=== PATIENT | female | born 1985 | race Caucasian/White ===

== ENCOUNTER 2020-03-15 03:16 | Outpatient (CLI) | payer OTHER, SELFPAY ==
[2020-03-15 13:45] LABS: Anion Gap 6.5 mmol/L (3-11); BUN 18 mg/dL (7-18); CO2 29.5 mmol/L (21.0-32.0); CREATININE 0.74 mg/dL (0.55-1.02); Calcium 8.8 mg/dL (8.5-10.1); Chloride 103 mmol/L (98-107); FREE T4 1.03 ng/dL (0.76-1.46); Glucose 87 mg/dL (74-106); Potassium 3.9 mmol/L (3.5-5.1); Sodium 139 mmol/L (136-145); TSH 0.99 uIU/mL (0.36-3.74)
[2020-03-15 13:57] LABS: Calculated LDL 92 mg/dL (<100); Cholesterol 179 mg/dL (<200); HDL Cholesterol 76 mg/dL (40-60); Triglyceride 58 mg/dL (<150)
== END 2020-03-15 03:36 ==
PROVIDERS: PCP Nurse Practitioner Family; Visit Provider Nurse Practitioner Family
DX: E03.9 Hypothyroidism, unspecified (principal)
CPT/HCPCS: 36415; 80048; 80061; 83036; 84439; 84443

== ENCOUNTER 2021-07-11 09:00 | Outpatient (CLI) | payer OTHER, SELFPAY ==
[2021-07-11 12:12] LABS: Abs Immature Grans 0.03 10^3/uL (0.0-0.06); Absolute Basophil Count 0.04 10^3/uL (0.0-0.2); Absolute Eosinophil Count 0.18 10^3/uL (0.0-0.7); Absolute Lymphocyte Count 2.12 10^3/uL (1.2-3.4); Absolute Monocyte Count 0.86 10^3/uL (0.1-0.8); Absolute Neutrophil Count 5.82 10^3/uL (1.2-6.7); Basophils % 0.4; HCT 38.3 % (36.0-46.0); HGB 13.1 g/dL (11.2-15.7); Immature Grans % 0.3; Lymphocytes % 23.4; MCH 31.6 pg (27.0-33.0); MCHC 34.2 % (32.0-36.0); MCV 92.3 fL (80-95); MPV 11.8 fL (8.0-11.0); Monocytes % 9.5; Neutrophils % 64.4; Nucleated RBC 0 %; Platelet Count 300 10^3/uL (130-400); RBC 4.15 10^6/uL (3.93-5.22); RDW-SD 43.6 fL; WBC 9.05 10^3/uL (4.4-10.8)
[2021-07-11 13:29] LABS: Anion Gap 12.2 mmol/L (3-11); BUN 10 mg/dL (7-18); CO2 27.8 mmol/L (21.0-32.0); CREATININE 0.8 mg/dL (0.55-1.02); Calcium 9.1 mg/dL (8.5-10.1); Chloride 102 mmol/L (98-107); FREE T4 1.13 ng/dL (0.76-1.46); Glucose 82 mg/dL (74-106); Potassium 4.3 mmol/L (3.5-5.1); Sodium 142 mmol/L (136-145); TSH 3.38 uIU/mL (0.36-3.74)
[2021-07-13 00:56] LABS: Vitamin D 25 Total 24.9 ng/mL (30-100)
== END 2021-07-11 09:01 | disposition home or self-care (01) ==
LOC: LBO 09:00
PROVIDERS: PCP Nurse Practitioner Family; Visit Provider Nurse Practitioner Family
DX: E03.9 Hypothyroidism, unspecified (principal)
CPT/HCPCS: 36415; 80048; 82306; 84439; 84443; 85025

== ENCOUNTER 2021-10-03 02:11 | Outpatient (CLI) | payer OTHER, SELFPAY ==
[2021-10-03 13:27] LABS: FREE T4 1.17 ng/dL (0.76-1.46); TSH 0.44 uIU/mL (0.36-3.74)
[2021-10-05 00:13] LABS: Vitamin D 25 Total 30.3 ng/mL (30-100)
== END 2021-10-03 02:12 | disposition home or self-care (01) ==
LOC: LBO 02:11
PROVIDERS: PCP Nurse Practitioner Family; Visit Provider Nurse Practitioner Family
DX: E03.9 Hypothyroidism, unspecified (principal); E55.9 Vitamin D deficiency, unspecified
CPT/HCPCS: 36415; 82306; 84439; 84443

== ENCOUNTER 2022-06-19 18:00 | Observation (INO) | payer OTHER, SELFPAY ==
[2022-06-19] VITALS (49 sets, daily range): BP systolic 126–132; BP diastolic 75–91; PULSE 69–76; RESP 15–20; TEMP 36.7; O2SAT 96–100
--- NOTE | 2022-06-19 | DI.CT_ITS ---
Exam(s) CT CHEST PE CTA EXAM: CT CHEST PE CTA CLINICAL HISTORY: right sided CP. TECHNIQUE: Imaging Protocol: Axial CT angiography was performed with multi-slice acquisition and mu lti-planar and/or 3D reconstructions. CONTRAST MATERIAL: Intravenous: Omnipaque 350 Contrast volume:structured data in ml COMPARISON: No exams were available for comparison FINDINGS: CT angiography of the chest was performed with intravenous infusion of 100 cc of Omnipaque 350. There are healing fractures with significant callus of the right 3rd through 6th ribs anteriorly. No acute fracture seen. The lungs are clear. No pleural effusion. Tracheobronchial tree appears intact. No evidence of pulmonary embolic disease. Thoracic aorta is of normal diameter, no thoracic aortic an eurysm or dissection, major branch vessels appear intact. No mediastinal or hilar adenopathy. Images obtained through the upper abdomen show unremarkable appearance of the visualized portions of the liver, spleen, pancreas, adrenals, and kidneys. IMPRESSION: Negative CT angiogram of the chest. No evidence of pulmonary embolic disease. Note is made of healing rib fractures of ribs 3 through 6 on the right, no acute fracture seen. RADIATION DOSE DELIVERED: 306.03mGy.cm Total DLP 306.03mGy.cm Total DLP !Error CTDIvol DATA REPOSITORY: All CT scans at this facility are submitted to the National Radiology Data Registry (NRDR) Dose Index Registry (DIR) with the [employer] (A[employer]). RADIATION OPTIMIZATION: All CT scans at this facility use at least one of these dose optimization te chniques: automated exposure control; mA and/or kV adjustment per patient size (includes targeted exa ms where dose is matched to clinical indication); or iterative reconstruction.
--- NOTE | 2022-06-19 18:15 | RT.EKG_ITS ---
APPROVED REPORT Exam: Resting ECG Reason for Exam: sob Patient Location: E HR:66 bpm ECG Measurements Heart Rate 66 AXIS OR 165 P 52 QRSd 97 QRS 52 QT 404 T 30 QTc 425 Conclusion Sinus rhythm...normal P axis, V-rate 60- 99. Sinus. Normal axis. No STEMI. I have reviewed and interpreted ECG and agree with software generated interpretation.
[2022-06-19 22:05] LABS: Abs Immature Grans 0.03 10^3/uL (0.0-0.06); Absolute Basophil Count 0.05 10^3/uL (0.0-0.2); Absolute Eosinophil Count 0.41 10^3/uL (0.0-0.7); Absolute Monocyte Count 0.68 10^3/uL (0.1-0.8); Absolute Neutrophil Count 3.76 10^3/uL (1.2-6.7); Basophils % 0.7; Eosinophils % 5.5; HCT 42.4 % (36.0-46.0); HGB 14.3 g/dL (11.2-15.7); Immature Grans % 0.4; Lymphocytes % 33.6; MCH 30.9 pg (27.0-33.0); MCHC 33.7 % (32.0-36.0); MCV 92 fL (80-95); MPV 11.3 fL (8.0-11.0); Monocytes % 9.2; Neutrophils % 50.6; Platelet Count 345 10^3/uL (130-400); RBC 4.63 10^6/uL (3.93-5.22); RDW-SD 40.3 fL; WBC 7.43 10^3/uL (4.4-10.8)
[2022-06-19 22:19] LABS: Troponin I 311 ng/L (<or=60)
[2022-06-19] MEDS: Omnipaque 350 MG/ML 100 ML BTL IJ (22:20)
[2022-06-19 22:21] LABS: TSH (W/Ref FT4) 1.94 uIU/mL (0.36-3.74)
[2022-06-19 22:32] LABS: D-Dimer 369 ng/mlFEU (<500)
[2022-06-19 22:37] LABS: Calcium 9.3 mg/dL (8.5-10.1)
[2022-06-19 22:38] LABS: ALT 36 U/L (14-59); AST 24 U/L (15-37); Albumin 4.2 g/dL (3.4-5.0); Alkaline Phosphatase 103 U/L (46-116); Anion Gap 6.5 mmol/L (3-11); BUN 16 mg/dL (7-18); Bilirubin, Total 0.2 mg/dL (0.2-1.0); CO2 30.5 mmol/L (21.0-32.0); CREATININE 0.8 mg/dL (0.55-1.02); Chloride 101 mmol/L (98-107); Estimated GFR 98.48 (mL/min/1.73m2); Glucose 90 mg/dL (74-106); Potassium 3.6 mmol/L (3.5-5.1); Sodium 138 mmol/L (136-145); Total Protein 8.4 g/dL (6.4-8.2)
[2022-06-19 22:39] LABS: Troponin I 348 ng/L (<or=60)
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
[2022-06-19 23:47] LABS: ESR 7 mm/hr (0-20)
[2022-06-19 23:50] LABS: Source Nasal/Nares
[2022-06-19] MEDS: Ketorolac 15 MG/ML VIAL IVP (23:56)
[2022-06-19] MEDS: Colchicine 0.6 MG TAB PO (23:56)
[2022-06-19 23:59] LABS: C-Reactive Protein 0.29 mg/dL (0.0-0.3)
[2022-06-20] VITALS (7 sets, daily range): BP systolic 111–123; BP diastolic 71–78; PULSE 58–70; RESP 16–18; TEMP 36.2–36.9; O2SAT 95–99
[2022-06-20 00:23] LABS: COVID-19 PCR Negative (Negative)
[2022-06-20] MEDS: Levothyroxine 112 MCG TAB PO (06:23)
[2022-06-20 06:33] LABS: Abs Immature Grans 0.02 10^3/uL (0.0-0.06); Absolute Basophil Count 0.05 10^3/uL (0.0-0.2); Absolute Eosinophil Count 0.35 10^3/uL (0.0-0.7); Absolute Monocyte Count 0.75 10^3/uL (0.1-0.8); Absolute Neutrophil Count 3.29 10^3/uL (1.2-6.7); Basophils % 0.8; Eosinophils % 5.3; HCT 36.4 % (36.0-46.0); HGB 12.8 g/dL (11.2-15.7); Immature Grans % 0.3; MCH 31.7 pg (27.0-33.0); MCHC 35.2 % (32.0-36.0); MCV 90 fL (80-95); MPV 11.7 fL (8.0-11.0); Monocytes % 11.4; Neutrophils % 50.2; Platelet Count 290 10^3/uL (130-400); RBC 4.04 10^6/uL (3.93-5.22); RDW 12.1 % (11.7-14.6); RDW-SD 39.7 fL; WBC 6.56 10^3/uL (4.4-10.8)
[2022-06-20 06:51] LABS: ALT 29 U/L (14-59); AST 24 U/L (15-37); Albumin 3.5 g/dL (3.4-5.0); Alkaline Phosphatase 86 U/L (46-116); Anion Gap 7.1 mmol/L (3-11); BUN 15 mg/dL (7-18); Bilirubin, Total 0.5 mg/dL (0.2-1.0); CO2 25.9 mmol/L (21.0-32.0); CREATININE 0.7 mg/dL (0.55-1.02); Calcium 8.6 mg/dL (8.5-10.1); Chloride 103 mmol/L (98-107); Estimated GFR 115.59 (mL/min/1.73m2); Glucose 93 mg/dL (74-106); Magnesium 1.9 mg/dL (1.8-2.4); Potassium 3.3 mmol/L (3.5-5.1); Sodium 136 mmol/L (136-145); Total Protein 6.8 g/dL (6.4-8.2)
[2022-06-20 07:01] LABS: Troponin I 275 ng/L (<or=60)
--- NOTE | 2022-06-20 07:15 | RT.EKG_ITS ---
APPROVED REPORT Exam: Resting ECG Reason for Exam: chest pain, elevated troponin Patient Location: I HR:61 bpm ECG Measurements Heart Rate 61 AXIS SC 165 P 21 QRSd 101 QRS 0 QT 444 T 20 QTc 448 Conclusion Sinus rhythm...normal P axis, V-rate 50- 99 Normal Electrocardiogram
[2022-06-20 07:56] LABS: NT-proBNP 30 pg/mL (<300)
[2022-06-20] MEDS: Colchicine 0.6 MG TAB PO (08:09)
[2022-06-20] MEDS: Potassium Chloride 10 MEQ CAPCR 40 MEQ PO (08:10)
[2022-06-20] MEDS: Ibuprofen 800 MG TAB PO ×2 (08:10→14:13)
[2022-06-20 10:34] LABS: Troponin I 283 ng/L (<or=60)
--- NOTE | 2022-06-20 13:06 | PDOC.CMIN ---
- If Service Date Differs Date of service: 06/20/22 Time of Service: 13:06 Care Management Initial Assess REASON FOR HOSPITALIZATION:: Costochrondral chest pain, elevated troponin PAST MEDICAL HISTORY/PAST SURGICAL HISTORY:: Medical History . Hyperthyroidism. S/p left throidectomy in 2003, now hypothyroid. Surgical History . S/P partial thyroidectomy (~2003). Left lob PREVIOUS FUNCTIONAL STATUS/SOCIAL/FAMILY SUPPORTS:: Independent at baseline in the community. Active, fully employed at [employer]. CURRENT FUNCTIONAL STATUS:: Independent, pleasant, awaiting ECHO and discharge plan of care. ADVANCE DIRECTIVES:: None on file. Has patient been provided with info about the portal/API?: Yes Did the patient sign up for the portal?: Yes CODE STATUS:: Full Code INSURANCE COVERAGE / FINANCIAL ISSUES:: [employer] PRIMARY CARE PHYSICIAN:: Yesenia Feldman POTENTIAL DISCHARGE NEEDS:: ECHO, Follow up appointments. PATIENT/FAMILY EDUCATION NEEDS:: Review discharge instructions, discuss Ask Me Three. ANTICIPATED BARRIERS TO DISCHARGE:: None identified. TRANSPORTATION:: Via private vehicle with family. PLAN:: Irais will return home when ready per MD. She will follow up with her PCP and plan of care as prescribed, she will transport via private vehicle with family.
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
== END 2022-06-20 14:49 | disposition home or self-care (01) ==
LOC: ER 06-20 00:25 → MS 06-20 00:45
PROVIDERS: Internal Medicine; Physician Assistant; Admitting Provider Family Medicine; Emergency Provider Physician Assistant; PCP Nurse Practitioner Family; Visit Provider Family Medicine
DX: R07.89 Other chest pain (principal); R74.8 Abnormal levels of other serum enzymes; Z23 Encounter for immunization; S22.41XD Multiple fractures of ribs, right side, subsequent encounter for fracture with routine healing; R91.8 Other nonspecific abnormal finding of lung field; Z20.822 Contact with and (suspected) exposure to COVID-19; Y93.55 Activity, bike riding; X58.XXXA Exposure to other specified factors, initial encounter; E89.0 Postprocedural hypothyroidism; E55.9 Vitamin D deficiency, unspecified; Z86.16 Personal history of COVID-19; R06.02 Shortness of breath
CPT/HCPCS: 36415; 71275; 80048; 80053; 81025; 85652; 87635; 90471; 90686; 93005; 96374; 99285; 83735; 83880; 84443; 84484; 85025; 85379; 86140; 93010; 93306; 99220; 99238; G0378; J1885; J3490

== ENCOUNTER 2022-07-12 03:32 | Outpatient (CLI) | payer OTHER, SELFPAY ==
[2022-07-12 15:32] LABS: Troponin I 74 ng/L (<or=60)
== END 2022-07-12 03:33 | disposition home or self-care (01) ==
LOC: LBO 03:32
PROVIDERS: PCP Nurse Practitioner Family; Visit Provider Nurse Practitioner Family
DX: R77.8 Other specified abnormalities of plasma proteins (principal)
CPT/HCPCS: 36415; 84484

== ENCOUNTER 2022-10-26 10:52 | Outpatient (RCR) | payer OTHER, SELFPAY ==
--- NOTE | 2022-10-26 10:45 | HOLTER_ITS ---
APPROVED REPORT Conclusion This is a 48-hour Holter monitor ordered for palpitations Rhythm throughout was sinus with an average heart rate of 83. Minimum was 57, maximum 154 A total of 7 isolated premature ventricular contractions were seen. There were 3 isolated atrial premature beats No patient symptoms were reported
== END 2022-11-23 23:59 | disposition home or self-care (01) ==
LOC: CARDOPNVT 10:52
PROVIDERS: PCP Nurse Practitioner Family; Visit Provider Nurse Practitioner Family
DX: R00.2 Palpitations (principal); I49.1 Atrial premature depolarization
CPT/HCPCS: 93225; 93226

== ENCOUNTER 2023-01-01 18:32 | Outpatient (REF) | payer OTHER, SELFPAY ==
[2023-01-02 22:06] LABS: Coccidioides Ab Scr w/Reflex Negative (Negative)
== END 2023-01-01 18:33 | disposition home or self-care (01) ==
LOC: LBN 18:32
PROVIDERS: PCP Nurse Practitioner Family; Visit Provider Student in an Organized Health Care Education/Training Program
DX: R07.1 Chest pain on breathing (principal)
CPT/HCPCS: 86635; 87798

== ENCOUNTER 2023-05-21 16:05 | Outpatient (CLI) | payer OTHER, SELFPAY ==
[2023-05-21 09:45] LABS: Alkaline Phosphatase 65 U/L (46-116); BUN 15 mg/dL (7-18); Bilirubin, Total 0.4 mg/dL (0.2-1.0); CO2 29.3 mmol/L (21.0-32.0); CREATININE 0.8 mg/dL (0.55-1.02); Calcium 9.4 mg/dL (8.5-10.1); Chloride 101 mmol/L (98-107); Estimated GFR 97.87 (mL/min/1.73m2); Glucose 89 mg/dL (74-106); Potassium 4.1 mmol/L (3.5-5.1); Sodium 138 mmol/L (136-145); Total Protein 7.6 g/dL (6.4-8.2)
[2023-05-21 09:46] LABS: ALT 31 U/L (14-59); AST 16 U/L (15-37); Anion Gap 7.7 mmol/L (3-11); TSH (W/Ref FT4) 1.18 uIU/mL (0.36-3.74)
[2023-05-21 09:57] LABS: Vitamin D 25 Total 31.9 ng/mL (30-100)
== END 2023-05-21 16:06 | disposition home or self-care (01) ==
LOC: LBO 16:05
PROVIDERS: PCP Nurse Practitioner Family; Visit Provider Nurse Practitioner Family
DX: Z00.00 Encounter for general adult medical examination without abnormal findings (principal)
CPT/HCPCS: 36415; 80053; 82306; 84443

== ENCOUNTER → 2023-10-10 10:16 | Outpatient (CLI) | payer OTHER, SELFPAY ==
--- NOTE | 2023-10-10 09:43 | DI.RAD_ITS ---
Exam(s) XR KNEE RT 3V AP,LAT,SERINA EXAM: XR KNEE RT 3V AP,LAT,SERINA CLINICAL HISTORY: knee pain, blunt force to anterior knee, M25.569. TECHNIQUE: 2D digital imaging was performed. Three views. COMPARISON: No exams were available for comparison FINDINGS: BONES: No acute fracture is present. No bony destructive lesion is seen. JOINTS: The knee is normally aligned. No joint effusion is seen. SOFT TISSUE: Anterior soft tissue swelling. IMPRESSION: Anterior soft tissue swelling. DATA REPOSITORY: RADIATION DOSE DELIVERED:
== END ==
PROVIDERS: PCP Nurse Practitioner Family; Visit Provider Student in an Organized Health Care Education/Training Program
DX: M25.561 Pain in right knee (principal)
CPT/HCPCS: 73562

== ENCOUNTER 2024-07-09 21:44 | Outpatient (REF) | payer OTHER, SELFPAY ==
[2024-07-09 17:12] LABS: Anion Gap 10.3 mmol/L (3-11); BUN 13 mg/dL (7-18); CO2 28.7 mmol/L (21.0-32.0); Calcium 9.4 mg/dL (8.5-10.1); Chloride 102 mmol/L (98-107); Estimated GFR 74.41 (mL/min/1.73m2); Glucose 86 mg/dL (74-106); Potassium 3.9 mmol/L (3.5-5.1); Sodium 141 mmol/L (136-145); Vitamin D 25 Total 23.2 ng/mL (30-100)
== END 2024-07-09 21:45 | disposition home or self-care (01) ==
LOC: LBN 21:44
PROVIDERS: PCP Nurse Practitioner Family; Visit Provider Nurse Practitioner Family
DX: Z00.00 Encounter for general adult medical examination without abnormal findings (principal); E03.9 Hypothyroidism, unspecified; E55.9 Vitamin D deficiency, unspecified
CPT/HCPCS: 80048; 82306; 84443

== ENCOUNTER 2024-09-16 16:01 | Outpatient (CLI) | payer OTHER, SELFPAY ==
--- NOTE | 2024-09-16 09:56 | DI.RAD_ITS ---
Exam(s) XR KNEE RT 3V AP,LAT,SERINA EXAM: XR KNEE RT 3V AP,LAT,SERINA CLINICAL HISTORY: RIGHT KNEE PAIN. TECHNIQUE: 2D digital imaging was performed. Three views. COMPARISON: CR XR KNEE RT 3V AP,LAT,SERINA from 10/10/2023 FINDINGS: BONES: No acute fracture is present. No bony destructive lesion is seen. JOINTS: The knee is normally aligned. A small joint effusion is seen. The joint spaces are maintain ed. SOFT TISSUE: Normal. IMPRESSION: Small joint effusion. DATA REPOSITORY: RADIATION DOSE DELIVERED:
== END 2024-09-16 16:02 | disposition home or self-care (01) ==
LOC: DIORS 16:01
PROVIDERS: PCP Nurse Practitioner Family; Visit Provider Student in an Organized Health Care Education/Training Program
DX: M25.561 Pain in right knee (principal)
CPT/HCPCS: 73562

== ENCOUNTER 2024-09-24 02:56 | Outpatient (CLI) | payer OTHER, SELFPAY ==
--- NOTE | 2024-09-24 07:15 | DI.MRI_ITS ---
Exam(s) MR LOWER JOINT RT WO EXAM: MR LOWER JOINT RT WO CLINICAL HISTORY: R KNEE INJURY,RT ACL TEAR,KNEE PAIN,S83.511A,M25.569. TECHNIQUE: Multiplanar multisequence MRI was performed. COMPARISON: CR XR KNEE RT 3V AP,LAT,SERINA from 09/16/2024 FINDINGS: BONES: There is marrow edema involving the lateral tibial plateau. There is also some deformity invo lving the very lateral aspect of the anterior tibial plateau which may represent a for nondisplaced f racture. There is also marrow edema seen in the medial tibial plateau posteriorly and the medial asp ect of the medial femoral condyle. JOINTS: Articular cartilage is unremarkable. There is a moderate joint effusion. TENDONS: Extensor mechanism: Unremarkable. Medial retinaculum: Unremarkable. Lateral retinaculum: Unremarkable. Popliteus: Unremarkable. MUSCLES: There is mild edema seen in the soleus and popliteus muscles which may represent mild muscle injury. No esvin tear is seen. There is mild edema seen in the soft tissues around the knee. MENISCI: The medial meniscus is unremarkable. The lateral meniscus is unremarkable. SOFT TISSUES: Edema seen in the soft tissues of the lower extremity. LIGAMENTS: Anterior Cruciate: There is a complete tear of the anterior cruciate ligament. Posterior Cruciate: Unremarkable. Medial Collateral:There is a small amount of fluid seen around the medial collateral ligament but no evidence of a tear. This may represent a sprain. Lateral Collateral: There is mild fluid around the lateral collateral ligament complex which may repr esent a sprain. No evidence of a tear. OTHER: There is a large popliteal cyst present. IMPRESSION: 1. Complete tear of the anterior cruciate ligament. 2. No evidence of a meniscal tear. 3. Contusions involving the medial femoral condyle and the medial tibial plateau. 4. Deformity of the anterolateral aspect of the lateral tibial plateau which may represent a fracture . There is associated marrow edema. 5. Edema seen in the soleus and popliteus muscles which may represent mild muscle injury. No esvin t ear is seen. DATA REPOSITORY:
== END 2024-09-24 03:16 ==
LOC: DI 02:56
PROVIDERS: PCP Nurse Practitioner Family; Visit Provider Student in an Organized Health Care Education/Training Program
DX: S83.511A Sprain of anterior cruciate ligament of right knee, initial encounter (principal); X58.XXXA Exposure to other specified factors, initial encounter
CPT/HCPCS: 73721

== ENCOUNTER 2024-11-06 06:10 | Day surgery (SDC) | payer OTHER, SELFPAY ==
[2024-11-06] VITALS (23 sets, daily range): BP systolic 102–136; BP diastolic 57–82; PULSE 60–83; RESP 13–28; TEMP 36.5–36.8; O2SAT 93–100; BMI 25.9
--- NOTE | 2024-11-06 06:14 | W.ANESPRE ---
General Info Date of Service Date Performed: 11/06/24 Height: 5 ft 6.25 in Weight: 73.482 kg Body Mass Index (BMI): 25.9 Surgical Procedure: Operation Date: 11/06/24 07:40 Proposed Procedure Side Surgeon p Knee ACL Reconstruction, Allograft Right Josh Chaudhry MD Meds Allergies and Home Medications Allergies Allergy/AdvReac Type Severity Reaction Status Date / Time No Known Allergies Allergy Verified 11/06/24 06:20 Home Medication ?Medication ?Instructions ?Recorded levothyroxine 112 mcg capsule 112 mcg PO DAILY #90 caps 05/22/24 cholecalciferol (vitamin D3) 50 2,000 unit PO DAILY 11/03/24 mcg (2,000 unit) tablet (Thera-D) Current Visit Medications: Current Medications Generic Name Dose Route Start Last Admin Trade Name Freq PRN Reason Stop Dose Admin Ringer's Solution 1,000 mls @ 30 mls/hr 11/06/24 06:00 IV 11/06/24 23:59 INFUSION KAROLINA Cefazolin Sodium/Dextrose 2 gm in 50 mls @ 100 mls/hr 11/06/24 06:00 Ancef Duplex IVPB 11/06/24 23:59 PREOP KAROLINA Tranexamic Acid/Sodium Chloride 1,000 mg in 100 mls @ 600 mls/hr 11/06/24 06:00 IVPB 11/06/24 23:59 PREOP KARLOINA IV Miscellaneous Supplies 1 each 11/06/24 06:00 Iv Access IV 11/06/24 23:59 DIRECTED KAROLINA Sodium Chloride 0 ml 11/06/24 06:00 Normal Saline Flush 10 Ml Syr IV 11/06/24 23:59 PRN PRN Sodium Chloride 0 ml 11/06/24 06:00 Normal Saline 10 Ml Vial IJ 11/06/24 23:59 DIRECTED PRN Sterile Water 0 ml 11/06/24 06:00 Water,Injection,Sterile 10 Ml Vial IJ 11/06/24 23:59 DIRECTED PRN PFSH Active Problems Active Problems: Problem Status Onset Code Right ACL tear Acute S83.511A Knee pain Acute M25.569 Hypothyroidism Chronic E03.9 Vitamin D deficiency Chronic E55.9 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, G89.29 Medical History Medical History COVID-19 virus infection (~08/2021) Hyperthyroidism S/p left throidectomy in 2003, now hypothyroid Surgical History Surgical History S/P partial thyroidectomy (~2003) Left lobe Tobacco Smoking/Tobacco Use Status: Never Passive smoking exposure: No Second hand exposure: No Alcohol Alcohol Intake: current Alcohol intake frequency: a few times a week Alcohol type: beer and wine Substance Use Substance use: Never Substance use type: does not use Counseling provided: none Vital Signs and Lab Results Vital Signs Most Recent Vital Signs in EMR: Temp Pulse Resp BP Pulse Ox 36.7 C 60 16 118/78 98 11/06/24 06:23 11/06/24 06:23 11/06/24 06:23 11/06/24 06:23 11/06/24 06:23 Lab Results Blood Type / Crossmatch: No Data to Display Complete Blood Count: No Data to Display Complete Metabolic Panel: No Data to Display Liver Function Panel: No Data to Display Coagulation Panel: No Data to Display Cardiac Panel: No Data to Display Arterial Blood Gas: No Data to Display Venous Blood Gas: No Data to Display Pancreas Panel: No Data to Display Thyroid Panel: No Data to Display Infectious Disease: No Data to Display Blood Cultures: No Data to Display Toxicology Panel: No Data to Display Panel: No Data to Display Anesthesia Assessment and Plan Anesthesia History Personal History: No History of Anesthesia Complications Family History: No Family History of Anesthesia Complications Exercise Tolerance Exercise Tolerance: Metabolic Equivalents>4 Cardiac & Pulmonary Exam Cardiac Exam: Normal S1/S2 Heart Sounds Pulmonary Exam: Clear Bilateral Breath Sounds Implantable Cardiac Device Does patient have a Pacemaker or an ICD?: No Airway Exam Known Difficult Airway: No Mallampati Class: 2 Mouth Opening: Normal (> 3cm) Thyromental Distance: Greater than 3 cm Neck Range of Motion: Full ROM Neck Circumference: Normal Teeth Condition: Normal Dentition ASA Classification ASA Score: ASA 2 Emergency Case?: No NPO Status NPO Status: NPO Clears >2 hours, Solids >8 hours Status Status: Negative HCG Anesthesia Plan Resuscitation Status: Full Code Anesthesia Technique: General Anesthesia Airway Planned: Endotracheal Tube Pain Management: Surgeon and patient request nerve block Monitors Used: Standard Monitors Preoperative Comments:: 39 yo female for ACL repair. Sig PMHx: hypothyroid (on replacement). never smoker, occ EtOH. EKG: sinus. ECHO: LVEF 65%, no valve issues. Previous Anes: no records here, but PONV with her thyroidectomy when she was 18. Discussed spinal vs GA, will do GA. Discussed risk and benefits of adductor canal vs femoral nerve block, will do femoral.
[2024-11-06] MEDS: Lactated Ringers 1,000 ML 30 ML IV (06:55)
--- NOTE | 2024-11-06 07:09 | W.PM.DSUDISC ---
Date of service: 11/06/24 Discharge Plan Disposition Patient Disposition: Home Condition: Stable Discharge Details Attending Provider: Josh Chaudhry Primary Care Provider: Yesenia Feldman Home Meds and New Rx's Prescriptions: New naproxen 250 mg tablet 250 - 500 mg PO BID PRN (Reason: moderate pain and swelling) Qty: 40 0RF oxycodone 5 mg tablet 5 - 10 mg PO .q4-6h MDD 30 mg PRN (Reason: severe pain) Qty: 18 0RF aspirin 81 mg capsule 81 mg PO DAILY 14 Days Qty: 14 0RF Continued levothyroxine 112 mcg capsule 112 mcg PO DAILY Qty: 90 3RF cholecalciferol (vitamin D3) [Thera-D] 50 mcg (2,000 unit) tablet 2,000 unit PO DAILY Discharge Instructions Additional Instructions: Surgery: Right knee arthroscopy with ACL reconstruction (allograft), small partial lateral meniscectomy, and medial plica excision 11/06/2024 Activity: Weightbearing as tolerated. No brace or crutches needed as soon as comfortable and stable on knee. Restore full knee extension as soon as possible. Perform early quad sets/quadriceps isometrics. Gradually increase flexion to full. Recommend elevation to minimize swelling discomfort. Encourage ankle pumps and wiggle toes to improve circulation. A physical therapy prescription will be sent electronically to begin in about 3 weeks. Avoid sports activities for about 9-12 months. Prescriptions: Aspirin 81 mg take 1 daily to prevent a blood clot for 14 days, starting tomorrow Naproxen 250 mg take 1-2 every 12 hours with a meal as needed for moderate pain Oxycodone 5 mg take 1-2 every 4-6 hours as needed for severe pain You may use [id number] Tylenol (acetaminophen) as needed for mild pain. These pain medications may be taken all at once or in different combinations as needed. Also, recommend Colace (docusate) as a stool softener as surgery and pain medicine cause constipation. You may try [id number] diphenhydramine (Benadryl) 25-50 mg nightly as a sleep aid Dressings: Loosen/adjust LIVIA bandage for comfort. Leave dressing in place for 3 days. May then remove and leave open to air or cover incisions with Band-Aids. Leave the sticky Steri-Strips in place until they fall off or remove them after you shower. May shower after 5 days. Follow-up: 10-[address] Chaudhry You may take off the leg compression stockings this evening at home. You may also leave them on a few days longer if you have a history of leg swelling or edema. Let us know right away if you develop any redness, drainage, fevers, chest pain, or trouble breathing. Do not drink alcohol or drive for at least 24 hours after anesthesia. Please call the office during business hours with any questions or concerns. Discharge Orders Discharge Orders: Discharge Order (Routine); Ordered 11/06/24 Ordered By: Yanet Lee DS: Diagnosis Discharge Diagnosis (1) Right ACL tear: Status: Acute
--- NOTE | 2024-11-06 07:27 | W.ANESNERVE ---
Nerve Block Single Injection Procedure Date and Time Date Performed: 11/06/24 Procedure Start: 07:15 Location Where Procedure Performed Procedure Location: Day Surgery Unit Reason Performed: Postoperative Analgesia Requesting Provider: Josh Chaudhry Timeout Performed Timeout Performed: Yes Monitoring Used ECG, Blood Pressure and SpO2 Sterility Sterility: Hand Hygiene, Surgical Cap, Surgical Mask, Sterile Gloves and Chlorhexidine Sedation Given During Procedure Sedation Given (Indicate Dose Given): Versed IV Dose:: 2 mg Patient Mental Status Patient Mental Status: Sedate with meaningful communication Nerve Block 1st Nerve Block: Laterality: Right Block Type: Femoral Ultrasound Image Saved?: Yes Needle / Catheter Used: 100mm SonoPlex II Local Anesthetic Bolus (Indicate Dose Given): Lidocaine used for local infiltration of skin, Injected in 3-5ml increments after negative blood aspiration and Bupivacaine 0.375% Dose:: 20 mL Additives (Indicate Dose Given): Epinephrine to make 1:400,000 (2.5mcg/ml) Dose:: 50 mcg and Precedex Dose:: 40 mcg Ultrasound: Sterile probe cover and gel used Nerve Stimulator: Supplement to Ultrasound use and No twitch or parasthesia noted < 0.5 mA Paresthesia: None Procedure Tolerated: No Complications Procedure Outcome: Successful Performed By: Bronson Rosales
[2024-11-06] MEDS: ceFAZolin 2 GM/50 ML BAG IVPB (07:46)
[2024-11-06] MEDS: TRANEXAMIC ACID/SOD. CHL. 1,000 MG/100 ML BAG 600 MG IVPB (07:52)
[2024-11-06] MEDS: EPINEPHrine 10 MG/10 ML ML (08:32)
[2024-11-06] MEDS: Bupivacaine 0.25% Pres-Free W/EPI 30 ML VIAL (08:32)
--- NOTE | 2024-11-06 10:09 | ROE_ITS ---
Operative Note Operative Note PRE-OP DIAGNOSIS: Right knee: 1. ACL rupture Right knee: 1. ACL rupture 2. Lateral meniscus tear 3. Medial plica PROCEDURE: Right knee: 1. ACL reconstruction, CPT #75771: Quadriceps allograft 2. Partial lateral meniscectomy, CPT #45789 3. Medial patellofemoral plica excision, CPT# 86002 SURGEON: Josh Chaudhry DIVISION CONTROLLER: Yanet Lee ANESTHESIA TYPE: Local By Surgeon, General LMA/ETT and Primary Nerve Block Refer to Anesthesia Record ESTIMATED BLOOD LOSS: 10 TOURNIQUET TIME: 0 COMPLICATIONS: None Patient was transported to: PACU Patient's condition: stable Implants: Arthrex ACL TightRope II RT and ABS with 8x12 mm cortical button QuadLink pre-sutured quadriceps allograft: 10 x68 mm Indications: Please see complete medical record for details. Findings: Exam under anesthesia: Full range of motion, stable varus valgus. Stable anterior drawer. Equivocal pivot shift. Grossly positive Melani testing. Arthroscopic findings: Moderately significant synovitis throughout especially patellofemoral and anterior intercondylar areas. Mireles thickened medial patellofemoral and medial gutter plica with some indentation on the medial femoral condyle cartilage. Intact medial compartment medial meniscus. Intact lateral compartment, but very small white zone lateral meniscus body fraying tearing. Stable and only partially frayed posterior horn at the root lateral meniscus. Complete ACL tear with empty lateral wall sign. Large mid to distal tibial ACL remnant. Intact PCL. Procedure Description: In the operating room, general anesthesia was induced. The patient was positioned supine on the operating room table. All bony prominences were well- padded. Preoperative antibiotics were administered. The knee was prepped and draped in the usual sterile fashion. The correct patient, procedure, and side of the procedure were all verified prior to incision. Exam under anesthesia was performed. Local anesthetic containing epinephrine was infiltrated about the planned anteromedial, anterolateral, lateral distal femoral, and pretibial surgery sites. The standard high and tight anterolateral and anteromedial portals were established and a complete diagnostic arthroscopy was performed with relevant findings detailed above. A passport cannula was inserted in both the anteromedial and anterolateral portals. There was an obvious thickened medial patellofemoral into medial gutter plica, which was resected with the small curved shaver, larger straight shaver, and then margins were smooth and then coagulated with the radiofrequency ablator. In the lateral compartment, there was a very small amount of lateral meniscus body fraying type tearing which was very quickly and readily trimmed with the shaver. There was some partial injury to the posterior horn at the root, but it was minor or largely healed and stable intact did not require any treatment. In the intercondylar area, the ACL remnant was removed leaving enough footprint on the femur and tibia to localize anatomic socket placement. A small notchplasty was performed to allow proper visualization of the back wall. The graft was measured and prepared on the back table. The TightRope II BTB and TightRope II ABS adjustable-loop cortical suspensory fixation implants were loaded on QuadLink pre-sutured quadriceps allograft. The femoral and tibial ends each measured 10 mm. The graft was marked at 20 mm from each end. On the ABS side, the tensioning sutures were marked and a shuttle suture was added. The graft was manually tensioned and the construct did not demonstrate any elongation. The graft was then compressed in a graft tube and covered with vancomycin soaked sponges. The femoral guide was then placed through the anterolateral portal carefully targeting the appropriate anatomic ACL origin. The outer 9 mm diameter of the guide was positioned anatomically with appropriate space between the proximal and posterior articular margins. On the lateral thigh, drill guide position and angle adjusted to about 60 degree angle to the longitudinal axis of the femur in the coronal plane and 20 degree angle to the trans-epicondylar axis in the axial plane to create the most optimal femoral socket. Knife and snap were used to open the skin and IT band and placed the drill guide on bone while maintaining appropriate position on the lateral wall. The tunnel length was noted to be used for marking and passing the femoral button. The flip cutter was then drilled to the appropriate location. The drill guide malleted 7 mm into the cortex. The remainder of the targeting guide removed. The FlipCutter was de ployed to 10 mm and retrograde reaming done to a depth of 30 mm. Bony debris was removed with the shaver. The flip cutter was then closed, withdrawn, and a FiberStick used to pass a #2 FiberWire shuttle stitch, which was withdrawn out the anterolateral portal. The tibial guide was then used to target the anatomic ACL insertion through the anteromedial portal. The drill angle adjusted to 57.5 degrees and a pretibial incision made. The drill guide was placed on bone, tunnel length noted, and the flip cutter drilled to the appropriate location. The drill guide malleted 7 mm into the cortex. The remainder of the targeting guide removed. The FlipCutter was deployed to 10mm and retrograde reaming done to a depth of 30 mm. Bony debris was removed with the shaver. The flip cutter was then closed, withdrawn, and a FiberStick used to pass a #2 FiberWire shuttle stitch, which was withdrawn out the anteromedial portal. The mechanical shaver was used to remove bone debris as well as chamfer and remove soft tissue from the edges of the sockets. A femoral shuttle sutures were withdrawn out the anterior medial portal. The PassPort was removed. This portal dilated to accommodate the graft size. The graft was brought over to the knee and the femoral sutures shuttled out the lateral thigh and advanced until the button was near the far cortex. Under arthroscopic visualization with the knee slightly hyperflexed, and the button was then passed and flipped on the far cortex. Counter traction was then maintained on the tibial side of the graft while it was carefully advanced into the knee and then about 15 mm into the femoral socket. The tibial sutures were then shuttled through the tibial tunnel and passing stitch removed while carefully noting the tensioning stitches. The graft was then dunked about 15 mm into the tibial socket. 8 x 12 mm cortical ABS button was then loaded to the ABS loop and tension sutures used to bring the cortical button down to bone. The graft was advanced and then provisionally tensioned on both the femoral and tibial sides. The knee was then cycled 22 times, tensioning rechecked, and final tightening done with the knee in full extension with a moderate reverse Melani maintained. The graft position and tension were appropriate. There was no impingement in full extension. Melani exam was rockstable. Femoral passing sutures were r emoved. Backup knots were then tied on both sides and suture tails cut. The knee and all portals were copiously irrigated and then knee drained of arthroscopic fluid. 3-0 Monocryl was used to close the portals and small incisions in a buried interrupted fashion. Mastisol, Steri-Strips, Xeroform, 4 x 4 gauze, and sterile soft roll was applied. The extremity was wrapped gently with an Shan bandage. A soft knee immobilizer placed. The patient awoke from anesthesia without complication and was transferred to the recovery room in a stable condition. Date of Procedure: 11/06/24
[2024-11-06] MEDS: HYDROmorphone 2 MG/ML SYR IVP (10:33)
[2024-11-06] MEDS: Normal Saline 10 ML VIAL IJ (10:33)
--- NOTE | 2024-11-06 10:37 | W.ANESPOSTOP ---
Postoperative Evaluation Date, Time and Location Date Performed: 11/06/24 Time Performed: 10:37 Patient Location: PACU Vital Signs Most Recent Imported Vital Signs: Most Recent Vital Signs Temp Pulse Resp BP Pulse Ox 36.8 C 70 26 H 112/62 97 11/06/24 10:31 11/06/24 10:31 11/06/24 10:31 11/06/24 10:31 11/06/24 10:30 Pain Score Most Recent Pain Score: Most Recent Pain Score Pain Level 0 11/06/24 07:15 Assessment Mental Status: Awake (Alert & Oriented to Patient Baseline) Airway and Respiratory Function: Patent airway with normal (patient baseline) respiratory exam Cardiovascular Function: Hemodynamically Stable Hydration Status: Adequately Hydrated Nausea & Vomiting: No Nausea or Vomiting Pain: Pain is Moderate or Severe Postoperative Pain Management: Pain being addressed with medication Peripheral Nerve Block: Regional nerve block not resolved at time of post operative discharge
== END 2024-11-06 13:00 | disposition home or self-care (01) ==
PROVIDERS: PCP Nurse Practitioner Family; Visit Provider Student in an Organized Health Care Education/Training Program
PROC: (CPT 29888; principal; 2024-11-06 07:30)
DX: S83.511A Sprain of anterior cruciate ligament of right knee, initial encounter (principal); S83.281A Other tear of lateral meniscus, current injury, right knee, initial encounter; M67.51 Plica syndrome, right knee; G89.18 Other acute postprocedural pain
CPT/HCPCS: 29888; 29875; 29881; 64447; 81025; J0131; J0171; J0665; J0690; J1100; J1171; J1805; J1885; J2250; J2405; J2704; J3370; J3475

== ENCOUNTER 2025-02-09 12:53 | Outpatient (REF) | payer OTHER, SELFPAY ==
[2025-02-09 14:15] LABS: Anion Gap 6.7 mmol/L (3-11); BUN 16 mg/dL (7-18); CO2 30.3 mmol/L (21.0-32.0); CREATININE 0.7 mg/dL (0.55-1.02); Calcium 9.2 mg/dL (8.5-10.1); Chloride 102 mmol/L (98-107); Estimated GFR 113.46 (mL/min/1.73m2); Glucose 100 mg/dL (74-106); Potassium 4.1 mmol/L (3.5-5.1); Sodium 139 mmol/L (136-145); TSH (W/Ref FT4) 2.61 uIU/mL (0.36-3.74)
== END 2025-02-09 12:54 | disposition home or self-care (01) ==
LOC: LBN 12:53
PROVIDERS: PCP Nurse Practitioner Family; Visit Provider Family Medicine
DX: E03.9 Hypothyroidism, unspecified (principal); E87.1 Hypo-osmolality and hyponatremia
CPT/HCPCS: 80048; 84443